=== PATIENT | female | born 1950 | race Caucasian/White ===

== ENCOUNTER 2021-02-03 13:14 | Outpatient (CLI) | payer MEDICARE, BC | END 2021-02-03 13:15 | disposition home or self-care (01) | LOC: CSHMAMMO 13:14 | PROVIDERS: ATTEND Family Medicine | DX: Z78.0 Asymptomatic menopausal state (principal); M85.89 Other specified disorders of bone density and structure, multiple sites | CPT/HCPCS: 77080 ==

== ENCOUNTER 2022-11-09 12:56 | Outpatient (CLI) | payer MEDICARE, BC | END 2022-11-09 12:57 | disposition home or self-care (01) | LOC: CSHMAMMO 12:56 | PROVIDERS: ATTEND Family Medicine | DX: Z12.31 Encounter for screening mammogram for malignant neoplasm of breast (principal); Z91.89 Other specified personal risk factors, not elsewhere classified | CPT/HCPCS: 77063; 77067 ==

== ENCOUNTER 2023-03-08 15:10 | Outpatient (CLI) | payer MEDICARE, BC | END 2023-03-08 15:11 | disposition home or self-care (01) | LOC: CSHMAMMO 15:10 | PROVIDERS: ATTEND Family Medicine | DX: M85.80 Other specified disorders of bone density and structure, unspecified site (principal); Z78.0 Asymptomatic menopausal state | CPT/HCPCS: 77080 ==

== ENCOUNTER 2023-12-06 12:57 | Outpatient (CLI) | payer MEDICARE, BC | END 2023-12-06 12:58 | disposition home or self-care (01) | LOC: CSHMAMMO 12:57 | PROVIDERS: ATTEND Family Medicine | DX: Z12.31 Encounter for screening mammogram for malignant neoplasm of breast (principal); Z91.89 Other specified personal risk factors, not elsewhere classified | CPT/HCPCS: 77063; 77067 ==